=== PATIENT | female | born 1995 | race Caucasian/White ===

== ENCOUNTER 2017-11-20 15:41 | Emergency (ER) | payer MEDICAID ==
[~2017-11-20] VITALS: Ht 165.1 cm; Wt 75.0 kg
[2017-11-20] MEDS ORDERED: ACETAMINOPHEN 325MG TABLET PO STA (16:15)
[2017-11-20] MEDS ORDERED: SODIUM CHLORIDE 0.9% 1,000 ML IV ONE (16:15)
[2017-11-20 16:51] LABS: BASOPHILS % 0.4 % (0.0-2.0); CHLORIDE 108 mEq/L (98-107); EOSINOPHILS % 2.9 % (0.0-5.0); HEMOGLOBIN. 11.7 g/dL (12.0-16.0); LYMPHOCYTES % 20.5 % (20.0-50.0); MEAN CORPUSCULAR HEMOGLOBIN 31.2 pg (28.0-32.0); MEAN CORPUSCULAR VOLUME 90.4 fL (81.0-99.0); MONOCYTES % 4.5 % (2.0-8.0); NEUTROPHILS % 71.7 % (40.0-76.0); PLATELET 240 x1000/uL (130-400); RED BLOOD CELL COUNT 3.76 mill/uL (4.2-5.4); RED CELL DISTRIBUTION WIDTH 13.7 % (11.6-14.6)
[2017-11-20 18:55] LABS: CLARITY URINE CLEAR (CLEAR); COLOR URINE YELLOW (YELLOW); KETONES URINE 1+ (NEGATIVE); LEUKOCYTE ESTERASE URINE NEGATIVE (NEGATIVE); NITRITE URINE NEGATIVE (NEGATIVE); OCCULT BLOOD URINE NEGATIVE (NEGATIVE); PROTEIN URINE NEGATIVE (NEGATIVE); SPECIFIC GRAVITY URINE 1.008 (1.005-1.030); UROBILINOGEN URINE 0.2 E.U./dL (0.2-1.0)
[2017-11-20 19:20] VITALS: BP 92/56
== END 2017-11-20 19:23 | disposition home or self-care (01) ==
LOC: ER 15:57
DX: O9A.212 Injury, poisoning and certain other consequences of external causes complicating pregnancy, second trimester (principal); M54.6 Pain in thoracic spine; R10.30 Lower abdominal pain, unspecified; Z3A.21 21 weeks gestation of pregnancy; V89.2XXA Person injured in unspecified motor-vehicle accident, traffic, initial encounter; Y93.89 Activity, other specified; Y92.410 Unspecified street and highway as the place of occurrence of the external cause; Y99.8 Other external cause status
CPT/HCPCS: 36415; 76805; 80048; 81003; 85025; 99285; J7030; Z7610